=== PATIENT | female | born 1970 | race African-American/Black ===

== ENCOUNTER 2019-02-04 10:33 | Inpatient (IN) | payer OTHER ==
[2019-02-04 12:57] VITALS: BMI 30.8
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
[2019-02-04] MEDS ORDERED: DICYCLOMINE HCL 10 MG CAPSULE PO PRN (14:14)
[2019-02-04] MEDS ORDERED: MAGNESIUM CITRATE 300 ML BOTTLE PO PRN (14:14)
[2019-02-04] MEDS ORDERED: NICOTINE POLACRILEX 4 MG GUM BUC PRN (14:14)
[2019-02-04] MEDS ORDERED: chlordiazePOXIDE HCL 25 MG CAPSULE PO PRN (14:14)
[2019-02-04] MEDS ORDERED: MAGNESIUM HYDROX 2400MG/30ML ORAL SUSPENSION 30 ML CUP PO PRN (14:14)
[2019-02-04] MEDS ORDERED: BISMUTH SUBSALICYLATE 262 MG/15 ML BTL PO PRN (14:14)
[2019-02-04] MEDS ORDERED: ONDANSETRON *ODT* 4 MG TABLET SL PRN (14:14)
[2019-02-04] MEDS ORDERED: P-EPHED 60MG/TRIPROLIDI 2.5MG TABLET PO PRN (14:14)
[2019-02-04] MEDS ORDERED: MAG HYDROX/AL HYDROX/SIMETH 30 ML UNIT-DOSE CUP PO PRN (14:14)
[2019-02-04] MEDS ORDERED: ACETAMINOPHEN 325 MG TABLET (FP) PO PRN ×2 (14:14)
[2019-02-04] MEDS ORDERED: AMMONIUM LACTATE 12% LOTION 225 GM BOTTLE TP PRN (14:22)
[2019-02-04] MEDS ORDERED: AZITHROMYCIN 250 MG TABLET PO ONE (15:00)
[2019-02-04] MEDS ORDERED: chlordiazePOXIDE HCL 25 MG CAPSULE PO ONE (15:05)
--- NOTE | 2019-02-04 15:21 | EKG ---
Test Reason : Blood Pressure : / mmHG Vent. Rate : 109 BPM Atrial Rate : 109 BPM P-R Int : 146 ms QRS Dur : 082 ms QT Int : 344 ms P-R-T Axes : 068 033 055 degrees QTc Int : 463 ms SINUS TACHYCARDIA OTHERWISE NORMAL ECG NO PREVIOUS ECGS AVAILABLE Confirmed by CLARITZA MCFARLANE, KERRI ([id number]) on 02/04/2019 3:20:54 PM Referred By: Confirmed By:KERRI JERRY MD
[2019-02-04] MEDS: metFORMIN HCL 500 MG TABLET (FP) PO SCH (16:51)
[2019-02-04] MEDS: ALBUTEROL SO4 8 GM HFA INHALER IH SCH ×3 (16:56→22:21)
[2019-02-04 18:03] LABS: HEMATOCRIT 44.8 % (32.4-45.2); HEMOGLOBIN 14.7 GM/dL (10.7-15.3); MCHC 32.8 g/dl (32.0-36.0); MEAN CELL VOLUME 94.3 fl (80-96); MEAN PLT VOLUME 9.1 fl (7.5-11.1); RBC 4.75 M/mm3 (3.60-5.2); RDW 13.2 % (11.6-15.6); WHITE BLOOD COUNT 12.9 K/mm3 (4.0-10.0)
[2019-02-04 18:45] LABS: CREATININE 0.7 mg/dL (0.55-1.3); POTASSIUM 4.1 mmol/L (3.5-5.1)
[2019-02-04 18:46] LABS: ALBUMIN 3.4 g/dl (3.4-5.0); BILIRUBIN,TOTAL 0.5 mg/dL (0.2-1); CALCIUM 9.3 mg/dL (8.5-10.1); TOT PROT 7.2 g/dl (6.4-8.2)
[2019-02-04 19:52] LABS: PLATELET COUNT 144 K/MM3 (134-434)
[2019-02-04] MEDS: IBUPROFEN 400 MG TABLET (FP) PO PRN (20:28)
[2019-02-04] MEDS: BACLOFEN 10 MG TABLET (FP) PO PRN (20:30)
[2019-02-04] MEDS: MENTHOL/PHENOL 1 EACH UD MM PRN (20:48)
[2019-02-04] MEDS ORDERED: BUDESONIDE/FORMETEROL FUMARATE 80/4.5 mcg INHALER IH SCH (22:00)
[2019-02-04] MEDS: BUDESONIDE/FORMETEROL FUMARATE 80/4.5 mcg INHALER IH SCH (22:21)
[2019-02-04] MEDS: THIAMINE HCL 100 MG TABLET (FP) PO SCH (22:22)
[2019-02-04] MEDS: chlordiazePOXIDE HCL 25 MG CAPSULE PO SCH (22:22)
[2019-02-04] MEDS: ATORVASTATIN CA 20 MG TABLET (FP) PO SCH (22:22)
[2019-02-04] MEDS: LIRAGLUTIDE 0.6 MG/0.1 ML PEN.INJCTR SQ SCH (22:24)
[2019-02-04] MEDS: INSULIN (LEVEMIR) 100 UNITS/ML UNITS SQ SCH (22:29)
[2019-02-04] MEDS: MONTELUKAST NA 10 MG TABLET PO SCH (23:00)
[2019-02-05] MEDS: ALBUTEROL SO4 8 GM HFA INHALER IH SCH ×6 (03:38→21:45)
[2019-02-05] MEDS: MENTHOL/PHENOL 1 EACH UD MM PRN ×2 (03:58→14:21)
[2019-02-05] MEDS: IBUPROFEN 400 MG TABLET (FP) PO PRN ×2 (04:02→15:32)
[2019-02-05] MEDS: chlordiazePOXIDE HCL 25 MG CAPSULE PO SCH ×4 (05:28→22:28)
[2019-02-05] MEDS: metFORMIN HCL 500 MG TABLET (FP) PO SCH ×2 (06:30→17:41)
[2019-02-05] MEDS: ASPIRIN 81 MG CHEWABLE TABLETS PO SCH (10:38)
[2019-02-05] MEDS: PRENATAL VITAMINS W/ FOLIC ACID TABLET (FP) PO SCH (10:39)
[2019-02-05] MEDS: NICOTINE 14 MG/24 HOURS TOPICAL PATCH TD SCH (10:39)
[2019-02-05] MEDS: BUDESONIDE/FORMETEROL FUMARATE 80/4.5 mcg INHALER IH SCH ×2 (10:39→21:45)
[2019-02-05] MEDS: AZITHROMYCIN 250 MG TABLET PO SCH (10:40)
[2019-02-05] MEDS: LIRAGLUTIDE 0.6 MG/0.1 ML PEN.INJCTR SQ SCH (10:50)
--- NOTE | 2019-02-05 12:21 | PN ---
S CIWA - CIWA Score Nausea/Vomitin-No Nausea/No Vomiting Muscle Tremors: 3 Anxiety: 3 Agitation: 3 Paroxysmal Sweats: 3 Orientation: 0-Oriented Tacttile Disturbances: 0-None Auditory Disturbances: 0-None Visual Disturbances: 0-None Headache: 0-None Present CIWA-Ar Total Score: 12 S Progress Note (SOAP) Subjective: sweats shakes interrupted sleep body aches Objective: 02/05/19 12:20 Vital Signs Temperature 97.6 F 02/05/19 10:42 Pulse Rate 92 H 02/05/19 10:42 Respiratory Rate 18 02/05/19 10:42 Blood Pressure 122/75 02/05/19 10:42 O2 Sat by Pulse Oximetry (%) Laboratory Tests 02/04/19 02/04/19 02/04/19 13:47 14:15 14:15 WBC 12.9 H RBC 4.75 Hgb 14.7 Hct 44.8 MCV 94.3 MCH 31.0 MCHC 32.8 RDW 13.2 Plt Count 144 D MPV 9.1 Platelet Comment No clumping noted Sodium 137 Potassium 4.1 Chloride 101 Carbon Dioxide 28 Anion Gap 8 BUN 6 L Creatinine 0.7 Est GFR (CKD-EPI)AfAm 118.74 Est GFR (CKD-EPI)NonAf 102.45 POC Glucometer Random Glucose 93 Calcium 9.3 Total Bilirubin 0.5 AST 26 ALT 20 Alkaline Phosphatase 123 H Total Protein 7.2 Albumin 3.4 POC Urine HCG, Qual Negative RPR Titer 02/04/19 02/04/19 02/04/19 14:15 14:54 16:49 WBC RBC Hgb Hct MCV MCH MCHC RDW Plt Count MPV Platelet Comment Sodium Potassium Chloride Carbon Dioxide Anion Gap BUN Creatinine Est GFR (CKD-EPI)AfAm Est GFR (CKD-EPI)NonAf POC Glucometer 97 110 Random Glucose Calcium Total Bilirubin AST ALT Alkaline Phosphatase Total Protein Albumin POC Urine HCG, Qual RPR Titer Nonreactive 02/04/19 02/05/19 02/05/19 21:30 05:26 10:39 WBC RBC Hgb Hct MCV MCH MCHC RDW Plt Count MPV Platelet Comment Sodium Potassium Chloride Carbon Dioxide Anion Gap BUN Creatinine Est GFR (CKD-EPI)AfAm Est GFR (CKD-EPI)NonAf POC Glucometer 179 110 136 Random Glucose Calcium Total Bilirubin AST ALT Alkaline Phosphatase Total Protein Albumin POC Urine HCG, Qual RPR Titer aaox3 ambulating no acute distress Assessment: 02/05/19 12:21 withdrawal sx Plan: continue detox increase fluids
--- NOTE | 2019-02-05 12:27 | PN ---
S Progress Note Note: pt was found and was witnessed giving her librium to another patient while on the line during medication. Pt was confronted by nursing, medical, management and counseling that this is unacceptable and is not appropriate practice. pt was in agreement. will continue to monitor
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
[2019-02-05] MEDS: DULoxetine HCL 60 MG CAPSULE.DR PO SCH (15:29)
[2019-02-05] MEDS: LIRAGLUTIDE 0.6 MG/0.1 ML SQ SCH (21:40)
[2019-02-05] MEDS: INSULIN (LEVEMIR) 100 UNITS/ML UNITS SQ SCH (21:41)
[2019-02-05] MEDS: BACLOFEN 10 MG TABLET (FP) PO PRN (21:45)
[2019-02-05] MEDS: MONTELUKAST NA 10 MG TABLET PO SCH (21:46)
[2019-02-05] MEDS: THIAMINE HCL 100 MG TABLET (FP) PO SCH (21:46)
[2019-02-05] MEDS: ATORVASTATIN CA 20 MG TABLET (FP) PO SCH (21:46)
[2019-02-06] MEDS: ALBUTEROL SO4 8 GM HFA INHALER IH SCH ×6 (03:54→21:31)
[2019-02-06] MEDS: chlordiazePOXIDE HCL 25 MG CAPSULE PO SCH ×3 (05:40→17:35)
[2019-02-06] MEDS: MENTHOL/PHENOL 1 EACH UD MM PRN (05:43)
[2019-02-06] MEDS: metFORMIN HCL 500 MG TABLET (FP) PO SCH ×2 (07:06→17:35)
[2019-02-06] MEDS: ASPIRIN 81 MG CHEWABLE TABLETS PO SCH (10:45)
[2019-02-06] MEDS: LIRAGLUTIDE 0.6 MG/0.1 ML SQ SCH (10:46)
[2019-02-06] MEDS: BUDESONIDE/FORMETEROL FUMARATE 80/4.5 mcg INHALER IH SCH ×2 (10:46→21:31)
[2019-02-06] MEDS: AZITHROMYCIN 250 MG TABLET PO SCH (10:46)
[2019-02-06] MEDS: DULoxetine HCL 60 MG CAPSULE.DR PO SCH (10:46)
[2019-02-06] MEDS: NICOTINE 14 MG/24 HOURS TOPICAL PATCH TD SCH (10:46)
[2019-02-06] MEDS: PRENATAL VITAMINS W/ FOLIC ACID TABLET (FP) PO SCH (10:46)
--- NOTE | 2019-02-06 12:19 | PN ---
S CIWA - CIWA Score Nausea/Vomitin-No Nausea/No Vomiting Muscle Tremors: 2 Anxiety: 2 Agitation: 2 Paroxysmal Sweats: 2 Orientation: 0-Oriented Tacttile Disturbances: 0-None Auditory Disturbances: 0-None Visual Disturbances: 0-None Headache: 0-None Present CIWA-Ar Total Score: 8 S Progress Note (SOAP) Subjective: sleepy tired interrupted sleep body aches Objective: 02/06/19 12:30 Vital Signs Temperature 97.5 F L 02/06/19 09:20 Pulse Rate 84 02/06/19 09:20 Respiratory Rate 19 02/06/19 09:20 Blood Pressure 111/70 02/06/19 09:20 O2 Sat by Pulse Oximetry (%) Laboratory Tests 02/04/19 02/04/19 02/04/19 13:47 14:15 14:15 WBC 12.9 H RBC 4.75 Hgb 14.7 Hct 44.8 MCV 94.3 MCH 31.0 MCHC 32.8 RDW 13.2 Plt Count 144 D MPV 9.1 Platelet Comment No clumping noted Sodium 137 Potassium 4.1 Chloride 101 Carbon Dioxide 28 Anion Gap 8 BUN 6 L Creatinine 0.7 Est GFR (CKD-EPI)AfAm 118.74 Est GFR (CKD-EPI)NonAf 102.45 POC Glucometer Random Glucose 93 Calcium 9.3 Total Bilirubin 0.5 AST 26 ALT 20 Alkaline Phosphatase 123 H Total Protein 7.2 Albumin 3.4 POC Urine HCG, Qual Negative RPR Titer 02/04/19 02/04/19 02/04/19 14:15 14:54 16:49 WBC RBC Hgb Hct MCV MCH MCHC RDW Plt Count MPV Platelet Comment Sodium Potassium Chloride Carbon Dioxide Anion Gap BUN Creatinine Est GFR (CKD-EPI)AfAm Est GFR (CKD-EPI)NonAf POC Glucometer 97 110 Random Glucose Calcium Total Bilirubin AST ALT Alkaline Phosphatase Total Protein Albumin POC Urine HCG, Qual RPR Titer Nonreactive 02/04/19 02/05/19 02/05/19 21:30 05:26 10:39 WBC RBC Hgb Hct MCV MCH MCHC RDW Plt Count MPV Platelet Comment Sodium Potassium Chloride Carbon Dioxide Anion Gap BUN Creatinine Est GFR (CKD-EPI)AfAm Est GFR (CKD-EPI)NonAf POC Glucometer 179 110 136 Random Glucose Calcium Total Bilirubin AST ALT Alkaline Phosphatase Total Protein Albumin POC Urine HCG, Qual RPR Titer 02/05/19 02/05/19 02/06/19 17:40 21:38 05:38 WBC RBC Hgb Hct MCV MCH MCHC RDW Plt Count MPV Platelet Comment Sodium Potassium Chloride Carbon Dioxide Anion Gap BUN Creatinine Est GFR (CKD-EPI)AfAm Est GFR (CKD-EPI)NonAf POC Glucometer 214 145 84 Random Glucose Calcium Total Bilirubin AST ALT Alkaline Phosphatase Total Protein Albumin POC Urine HCG, Qual RPR Titer aaox3 ambulating no acute distress Assessment: 02/06/19 12:30 mild withdrawal sx Plan: hold 10am librium resume detox regimen later increase fluids
[2019-02-06] MEDS: INSULIN (LEVEMIR) 100 UNITS/ML UNITS SQ SCH (21:27)
[2019-02-06] MEDS: ATORVASTATIN CA 20 MG TABLET (FP) PO SCH (21:31)
[2019-02-06] MEDS: THIAMINE HCL 100 MG TABLET (FP) PO SCH (21:31)
[2019-02-06] MEDS: MONTELUKAST NA 10 MG TABLET PO SCH (21:31)
[2019-02-06] MEDS: BACLOFEN 10 MG TABLET (FP) PO PRN (21:31)
[2019-02-06] MEDS: hydrOXYzine PAMOATE 25 MG CAPSULE (FP) PO PRN (21:32)
[2019-02-06] MEDS: MELATONIN 5 MG TABLETS PO PRN (21:32)
[2019-02-06] MEDS: chlordiazePOXIDE HCL 10 MG CAPSULE PO SCH (22:14)
[2019-02-07] MEDS: ALBUTEROL SO4 8 GM HFA INHALER IH SCH ×6 (02:55→22:39)
[2019-02-07] MEDS: chlordiazePOXIDE HCL 10 MG CAPSULE PO SCH ×4 (05:30→22:39)
[2019-02-07] MEDS: BACLOFEN 10 MG TABLET (FP) PO PRN ×2 (06:00→22:41)
[2019-02-07] MEDS: metFORMIN HCL 500 MG TABLET (FP) PO SCH ×2 (08:28→16:50)
[2019-02-07] MEDS: ASPIRIN 81 MG CHEWABLE TABLETS PO SCH (10:45)
[2019-02-07] MEDS: NICOTINE 14 MG/24 HOURS TOPICAL PATCH TD SCH (10:46)
[2019-02-07] MEDS: PRENATAL VITAMINS W/ FOLIC ACID TABLET (FP) PO SCH (10:46)
[2019-02-07] MEDS: DULoxetine HCL 60 MG CAPSULE.DR PO SCH (10:46)
[2019-02-07] MEDS: AZITHROMYCIN 250 MG TABLET PO SCH (10:46)
[2019-02-07] MEDS: BUDESONIDE/FORMETEROL FUMARATE 80/4.5 mcg INHALER IH SCH ×2 (10:53→22:38)
[2019-02-07] MEDS: LIRAGLUTIDE 0.6 MG/0.1 ML SQ SCH (10:53)
--- NOTE | 2019-02-07 11:16 | PN ---
S CIWA - CIWA Score Nausea/Vomitin-No Nausea/No Vomiting Muscle Tremors: 2 Anxiety: 2 Agitation: 1-Slight > Activity Paroxysmal Sweats: 2 Orientation: 0-Oriented Tacttile Disturbances: 0-None Auditory Disturbances: 0-None Visual Disturbances: 0-None Headache: 0-None Present CIWA-Ar Total Score: 7 BHS Progress Note (SOAP) Subjective: c/o sweats, anxiety, mild tremor, and interrupted sleep. Objective: 02/07/19 11:15 Vital Signs 02/07/19 02/07/19 02/07/19 03:30 06:00 09:40 Temperature 97.9 F 98.3 F Pulse Rate 104 H 87 Respiratory 20 18 18 Rate Blood Pressure 107/70 124/70 Assessment: 02/07/19 11:15 AOX3, in no acute distress Plan: continue detox.
[2019-02-07] MEDS: INSULIN (LEVEMIR) 100 UNITS/ML UNITS SQ SCH (22:38)
[2019-02-07] MEDS: ATORVASTATIN CA 20 MG TABLET (FP) PO SCH (22:39)
[2019-02-07] MEDS: MELATONIN 5 MG TABLETS PO PRN (22:39)
[2019-02-07] MEDS: MONTELUKAST NA 10 MG TABLET PO SCH (22:39)
[2019-02-07] MEDS: THIAMINE HCL 100 MG TABLET (FP) PO SCH (22:40)
[2019-02-07] MEDS: IBUPROFEN 400 MG TABLET (FP) PO PRN (22:41)
[2019-02-07] MEDS: hydrOXYzine PAMOATE 25 MG CAPSULE (FP) PO PRN (22:42)
[2019-02-08] MEDS: metFORMIN HCL 500 MG TABLET (FP) PO SCH ×2 (06:07→17:46)
[2019-02-08] MEDS: ALBUTEROL SO4 8 GM HFA INHALER IH SCH ×4 (06:07→14:27)
[2019-02-08] MEDS: chlordiazePOXIDE HCL 10 MG CAPSULE PO SCH ×2 (10:16→22:03)
[2019-02-08] MEDS: ASPIRIN 81 MG CHEWABLE TABLETS PO SCH (10:16)
[2019-02-08] MEDS: NICOTINE 14 MG/24 HOURS TOPICAL PATCH TD SCH (10:16)
[2019-02-08] MEDS: LIRAGLUTIDE 0.6 MG/0.1 ML SQ SCH (10:17)
[2019-02-08] MEDS: DULoxetine HCL 60 MG CAPSULE.DR PO SCH (10:17)
[2019-02-08] MEDS: PRENATAL VITAMINS W/ FOLIC ACID TABLET (FP) PO SCH (10:17)
[2019-02-08] MEDS: BUDESONIDE/FORMETEROL FUMARATE 80/4.5 mcg INHALER IH SCH (10:17)
--- NOTE | 2019-02-08 17:53 | PN ---
S CIWA - CIWA Score Nausea/Vomitin-No Nausea/No Vomiting Muscle Tremors: 2 Anxiety: 2 Agitation: 2 Paroxysmal Sweats: 2 Orientation: 0-Oriented Tacttile Disturbances: 0-None Auditory Disturbances: 0-None Visual Disturbances: 0-None Headache: 0-None Present CIWA-Ar Total Score: 8 BHS Progress Note (SOAP) Subjective: Lots of sweats on face, anxious, agitated Objective: 02/08/19 17:47 Last Vital Signs Temp Pulse Resp BP Pulse Ox 97.5 F L 96 H 18 109/68 02/08/19 14:28 02/08/19 14:28 02/08/19 14:28 02/08/19 14:28 Laboratory Tests 02/04/19 02/04/19 02/04/19 13:47 14:15 14:15 WBC 12.9 H RBC 4.75 Hgb 14.7 Hct 44.8 MCV 94.3 MCH 31.0 MCHC 32.8 RDW 13.2 Plt Count 144 D MPV 9.1 Platelet Comment No clumping noted Sodium 137 Potassium 4.1 Chloride 101 Carbon Dioxide 28 Anion Gap 8 BUN 6 L Creatinine 0.7 Est GFR (CKD-EPI)AfAm 118.74 Est GFR (CKD-EPI)NonAf 102.45 POC Glucometer Random Glucose 93 Calcium 9.3 Total Bilirubin 0.5 AST 26 ALT 20 Alkaline Phosphatase 123 H Total Protein 7.2 Albumin 3.4 POC Urine HCG, Qual Negative RPR Titer 02/04/19 02/04/19 02/04/19 14:15 14:54 16:49 WBC RBC Hgb Hct MCV MCH MCHC RDW Plt Count MPV Platelet Comment Sodium Potassium Chloride Carbon Dioxide Anion Gap BUN Creatinine Est GFR (CKD-EPI)AfAm Est GFR (CKD-EPI)NonAf POC Glucometer 97 110 Random Glucose Calcium Total Bilirubin AST ALT Alkaline Phosphatase Total Protein Albumin POC Urine HCG, Qual RPR Titer Nonreactive 02/04/19 02/05/19 02/05/19 21:30 05:26 10:39 WBC RBC Hgb Hct MCV MCH MCHC RDW Plt Count MPV Platelet Comment Sodium Potassium Chloride Carbon Dioxide Anion Gap BUN Creatinine Est GFR (CKD-EPI)AfAm Est GFR (CKD-EPI)NonAf POC Glucometer 179 110 136 Random Glucose Calcium Total Bilirubin AST ALT Alkaline Phosphatase Total Protein Albumin POC Urine HCG, Qual RPR Titer 02/05/19 02/05/19 02/06/19 17:40 21:38 05:38 WBC RBC Hgb Hct MCV MCH MCHC RDW Plt Count MPV Platelet Comment Sodium Potassium Chloride Carbon Dioxide Anion Gap BUN Creatinine Est GFR (CKD-EPI)AfAm Est GFR (CKD-EPI)NonAf POC Glucometer 214 145 84 Random Glucose Calcium Total Bilirubin AST ALT Alkaline Phosphatase Total Protein Albumin POC Urine HCG, Qual RPR Titer 02/06/19 02/06/19 02/07/19 16:14 21:25 05:33 WBC RBC Hgb Hct MCV MCH MCHC RDW Plt Count MPV Platelet Comment Sodium Potassium Chloride Carbon Dioxide Anion Gap BUN Creatinine Est GFR (CKD-EPI)AfAm Est GFR (CKD-EPI)NonAf POC Glucometer 85 134 81 Random Glucose Calcium Total Bilirubin AST ALT Alkaline Phosphatase Total Protein Albumin POC Urine HCG, Qual RPR Titer 02/07/19 02/07/19 02/08/19 16:46 21:17 05:34 WBC RBC Hgb Hct MCV MCH MCHC RDW Plt Count MPV Platelet Comment Sodium Potassium Chloride Carbon Dioxide Anion Gap BUN Creatinine Est GFR (CKD-EPI)AfAm Est GFR (CKD-EPI)NonAf POC Glucometer 190 195 115 Random Glucose Calcium Total Bilirubin AST ALT Alkaline Phosphatase Total Protein Albumin POC Urine HCG, Qual RPR Titer 02/08/19 17:02 WBC RBC Hgb Hct MCV MCH MCHC RDW Plt Count MPV Platelet Comment Sodium Potassium Chloride Carbon Dioxide Anion Gap BUN Creatinine Est GFR (CKD-EPI)AfAm Est GFR (CKD-EPI)NonAf POC Glucometer 102 Random Glucose Calcium Total Bilirubin AST ALT Alkaline Phosphatase Total Protein Albumin POC Urine HCG, Qual RPR Titer Labs reviewed: wbc 12.9, elevated glucose Assessment: 02/08/19 17:49 Withdrawal symptoms Noted with leukocytosis and hyperglycemia Plan: Continue detox Encouraged PO water hydration Leukocytosis: repeat CBC in AM, send UA Hyperglycemia due to DMT2: continue diabetic regimen, educated on adherence to diabetic diet
[2019-02-08] MEDS: MONTELUKAST NA 10 MG TABLET PO SCH (22:03)
[2019-02-08] MEDS: ATORVASTATIN CA 20 MG TABLET (FP) PO SCH (22:03)
[2019-02-08] MEDS: THIAMINE HCL 100 MG TABLET (FP) PO SCH (22:03)
[2019-02-08] MEDS: MELATONIN 5 MG TABLETS PO PRN (23:29)
[2019-02-09] MEDS: ALBUTEROL SO4 8 GM HFA INHALER IH SCH ×5 (00:01→10:29)
[2019-02-09] MEDS: INSULIN (LEVEMIR) 100 UNITS/ML UNITS SQ SCH (00:01)
[2019-02-09] MEDS: BUDESONIDE/FORMETEROL FUMARATE 80/4.5 mcg INHALER IH SCH ×2 (00:02→10:28)
[2019-02-09] MEDS: metFORMIN HCL 500 MG TABLET (FP) PO SCH (06:01)
[2019-02-09] MEDS: IBUPROFEN 400 MG TABLET (FP) PO PRN (06:04)
[2019-02-09] MEDS: MENTHOL/PHENOL 1 EACH UD MM PRN (06:06)
--- NOTE | 2019-02-09 09:25 | DS ---
[facility] Detox Discharge Summary Admission Date: 02/04/19 Discharge Date: 02/09/19 - History Present History: Alcohol Dependence, Cocaine Dependence - Physical Exam Results Vital Signs: Vital Signs Temperature 97.7 F 02/09/19 07:53 Pulse Rate 90 02/09/19 07:53 Respiratory Rate 18 02/09/19 07:53 Blood Pressure 94/63 02/09/19 07:53 O2 Sat by Pulse Oximetry (%) - Treatment Hospital Course: Detox Protocol Followed, Detoxed Safely, Responded well, Discharged Condition Good, Rehab Referral Accepted - Medication Discharge Medications: Ambulatory Orders Zolpidem Tartrate [Ambien] 10 mg PO HS 10/16/14 Aspirin [ASA -] 81 mg PO DAILY #30 tab.chew 10/20/14 Atorvastatin Ca [Lipitor] 20 mg PO HS #30 tablet 10/20/14 Montelukast Na [Singulair -] 10 mg PO HS #30 tablet 10/20/14 metFORMIN HCL [Glucophage -] 500 mg PO BID@0700,1630 #60 tablet 10/20/14 Albuterol Sulfate Inhaler - [Ventolin Hfa Inhaler -] 2 inh PO Q4H 02/04/19 Budesonide/Formeterol Fumarate [SYMBICORT 80/4.5mcg -] 2 inhaler PO BID Duloxetine HCl [Cymbalta -] 60 mg PO DAILY 02/04/19 Insulin Glargine,Hum.rec.anlog [Basaglar Kwikpen U-100] 40 unit SQ HS 02/04/19 Liraglutide [Victoza 3-Damian] 18 mg SQ DAILY 02/04/19 Simvastatin [Zocor -] 20 mg PO DAILY 02/04/19 - Diagnosis (1) Asthma Current Visit: Yes Status: Chronic Qualifiers: Asthma severity: mild Asthma complication type: uncomplicated (2) Cocaine dependence Current Visit: Yes Status: Acute Qualifiers: Substance use status: uncomplicated Qualified Code(s): F14.20 - Cocaine dependence, uncomplicated (3) Depression Current Visit: No Status: Acute (4) Drug-induced mood disorder Current Visit: No Status: Acute (5) History of amputation below knee Current Visit: No Status: Chronic Qualifiers: Laterality: left Qualified Code(s): Z89.512 - Acquired absence of left leg below knee (6) Hypercholesterolemia Current Visit: Yes Status: Chronic (7) IDDM (insulin dependent diabetes mellitus) Current Visit: Yes Status: Chronic (8) Nicotine dependence Current Visit: Yes Status: Chronic Qualifiers: Nicotine product type: cigarettes Substance use status: uncomplicated Qualified Code(s): F17.210 - Nicotine dependence, cigarettes, uncomplicated - AMA Did Patient Leave Against Medical Advice: No (referred to [facility])
[2019-02-09 09:40] VITALS: BP 110/71; PULSE 88; TEMP 97.5
[2019-02-09 10:16] LABS: BASO % 0.4 % (0-2.0); HEMATOCRIT 38.2 % (32.4-45.2); HEMOGLOBIN 12.7 GM/dL (10.7-15.3); LYMPH % 44.5 % (8-40); MCHC 33.1 g/dl (32.0-36.0); MEAN CELL VOLUME 93.7 fl (80-96); MEAN PLT VOLUME 8.7 fl (7.5-11.1); NEUT % 41.1 % (42.8-82.8); PLATELET COUNT 329 K/MM3 (134-434); RBC 4.08 M/mm3 (3.60-5.2); RDW 12.9 % (11.6-15.6); WHITE BLOOD COUNT 8.7 K/mm3 (4.0-10.0)
[2019-02-09] MEDS: DULoxetine HCL 60 MG CAPSULE.DR PO SCH (10:28)
[2019-02-09] MEDS: PRENATAL VITAMINS W/ FOLIC ACID TABLET (FP) PO SCH (10:28)
[2019-02-09] MEDS: ASPIRIN 81 MG CHEWABLE TABLETS PO SCH (10:28)
[2019-02-09] MEDS: NICOTINE 14 MG/24 HOURS TOPICAL PATCH TD SCH (10:28)
[2019-02-09] MEDS: LIRAGLUTIDE 0.6 MG/0.1 ML SQ SCH (10:29)
== END 2019-02-09 13:15 | disposition home or self-care (01) | DRG 774 ==
LOC: YASAS 10:33 → Y6N 14:56
PROVIDERS: ADMIT Surgery; ATTEND Surgery
PROC: HZ2ZZZZ Detoxification Services for Substance Abuse Treatment (ICD-10-PCS; principal; 2019-02-04)
DX: F10.230 Alcohol dependence with withdrawal, uncomplicated (principal); F14.20 Cocaine dependence, uncomplicated; F17.213 Nicotine dependence, cigarettes, with withdrawal; F19.24 Other psychoactive substance dependence with psychoactive substance-induced mood disorder; F19.282 Other psychoactive substance dependence with psychoactive substance-induced sleep disorder; F33.9 Major depressive disorder, recurrent, unspecified; F41.9 Anxiety disorder, unspecified; J45.20 Mild intermittent asthma, uncomplicated; E78.00 Pure hypercholesterolemia, unspecified; E11.65 Type 2 diabetes mellitus with hyperglycemia; Z79.4 Long term (current) use of insulin; D64.9 Anemia, unspecified; D72.828 Other elevated white blood cell count; Z89.512 Acquired absence of left leg below knee; Z88.0 Allergy status to penicillin
CPT/HCPCS: 36415; 71046-TC-FY; 80053; 81025; 82962; 85025; 85027; 86593; 93005; 93010; J0475